=== PATIENT | female | born 1990 | race Caucasian/White ===

== ENCOUNTER 2024-04-19 10:28 | Emergency (ER) | payer OTHER, SELFPAY ==
--- NOTE | ~2024-04-19 | US_ITS ---
Duplex Sonography of the left extremity: Indication: Pain Findings: Sagittal and transverse B-mode images as well as color-flow imaging were performed on the l eft femoral and popliteal veins. B-mode examination was done without and with compression in the tra nsverse plane. There is good visualization of the common femoral, proximal profunda femoral, superfi cial femoral, greater saphenous, and popliteal veins. Normal flow was seen on color-flow imaging. No rmal compressibility was demonstrated. Visualized calf veins are also patent. Impression: No evidence of deep vein thrombosis involving the left lower extremity. Reviewed, dictated and finalized at location M. Impression: No evidence of deep vein thrombosis involving the left lower extremity.
[2024-04-19 10:39] VITALS: BP 141/86; PULSE 92; RESP 18; TEMP 36.9; O2SAT 100
--- NOTE | 2024-04-19 13:11 | ED.EXTPRO ---
HPI - Extremity Problem General Chief complaint: Extremity Problem,Nontraumatic Stated complaint: left leg pain, edema red Time Seen by Provider: 04/19/24 12:37 History of Present Illness HPI Narrative: Patient is a 33-year-old female who presents to the emergency department this morning complaining of a rash to her left lower extremity. Patient states that she noticed it 2 days ago and went to an urgent care today and was sent to our facility for an ultrasound to rule out a DVT. Rashes tender to touch but does not itch. Patient denies any recent changes to her home a products including larger detergent, denies any recent tick bites and cannot think of any exposure causing the rash. Patient states that she had a her check her entire body for any tick bites and they did not find anything. Patient denies any chest pain or shortness of breath, any fevers or chills. No additional symptoms or concerns at this time. Related Data Allergies Allergy/AdvReac Type Severity Reaction Status Date / Time No Known Allergies Allergy Verified 04/19/24 11:20 Review of Systems Review of Systems: All systems are reviewed and are negative unless stated otherwise in the HPI. Exam Narrative: General: Alert, awake, afebrile, in no acute distress. HEENT: PERRL, no rhinorrhea, no post nasal drip, oropharynx clear. Cardiovascular: Regular rate and rhythm, no murmurs, rubs or gallops, no peripheral edema. Respiratory: Clear to auscultation bilaterally, no tachypnea, no wheezing, no rhonchi, no rubs, no respiratory distress. Abdomen: Soft, nontender, nondistended, no rebound, no guarding, no peritoneal signs. Musculoskeletal: No joint swelling or deformity, normal muscle tone. Skin: Urticarial jarrett noted to left lower extremity along the patient's mid lower leg medially, blanchable, no evidence of cellulitis Neurological: Alert and oriented to person, place, and time. Follows all commands. No focal deficits, speech is clear and fluent. Course Vital Signs Vital signs: Vital Signs Temperature 98.4 F 04/19/24 10:39 Pulse Rate 92 04/19/24 10:39 Respiratory Rate 18 04/19/24 10:39 Blood Pressure 141/86 H 04/19/24 10:39 Pulse Oximetry 100 04/19/24 10:39 Oxygen Delivery Room Air 04/19/24 10:39 Temperature 98.4 F 04/19/24 10:39 Pulse Rate 88 04/19/24 13:12 Respiratory Rate 98 H 04/19/24 13:12 Blood Pressure 139/86 04/19/24 13:12 Pulse Oximetry 99 04/19/24 13:12 Oxygen Delivery Room Air 04/19/24 10:39 MDM - Extremity (Nontraumatic) MDM Narrative Medical decision making narrative: The patient was evaluated by myself in the emergency department. History is obtained from patient who is an independent historian and physical exam was performed. External medical records were reviewed at this time. Imaging studies obtained included a left lower extremity venous duplex ultrasound which was independently interpreted by me revealing no evidence of DVT, which is pending final radiology interpretation. Differential diagnosis considerations include allergic reaction, contact dermatitis, DVT, cellulitis. Comorbidities impacting this visit include none. I have evaluated and discussed social determinants of health with the patient that could potentially impact subsequent diagnosis and treatment plans. On repeat assessment of the patient, reevaluation revealed that the patient is doing well and is in no acute distress. Patient symptoms have remained stable since she arrived to our emergency department. Repeat vital signs were all reviewed and noted to be stable. Differential diagnosis and treatment plan were discussed with the patient at bedside. Patient agrees with discussion and after shared medical decision making agrees with discharge. All questions were answered to the patient's satisfaction. Patient will follow up with dermatology in 3-5 days. Patient was provided with strict return precautions and inst
[2024-04-19 13:12] VITALS: BP 139/86; PULSE 88; RESP 98; O2SAT 99
== END 2024-04-19 13:15 | disposition home or self-care (01) ==
PROVIDERS: Emergency Provider Emergency Medicine
DX: R21 Rash and other nonspecific skin eruption (principal); M79.662 Pain in left lower leg
CPT/HCPCS: 93971; 99284